=== PATIENT | female | born 1950 | race African-American/Black ===

== ENCOUNTER 2017-06-30 10:33 | Emergency (ER) | payer MEDICARE ==
[~2017-06-30] VITALS: Ht 170.2 cm; Wt 77.0 kg
[2017-06-30 10:34] VITALS: BP 192/85; PULSE 77; RESP 16; TEMP 97.9; O2SAT 98
[2017-06-30] MEDS ORDERED: ASPI81CH CHEW (11:17)
[2017-06-30] MEDS ORDERED: METO50TA PO (11:17)
[2017-06-30] MEDS ORDERED: GABA100C4 PO (11:17)
[2017-06-30] MEDS ORDERED: LOTR5CAP3 PO (11:17)
[2017-06-30] MEDS ORDERED: FAMO1TAB37 PO (11:21)
--- NOTE | 2017-06-30 11:22 | PD ---
HPI Chief Complaint: Dizziness Time Seen by Provider: 11:09 Travel History International Travel<30 days: No Contact w/Intl Traveler<30days: No Traveled to known affect area: No History of Present Illness HPI The patient was seen and examined in the presence of the nurse. This patient complains of feeling lightheadedness. Duration is 2 hours. Severity is moderate. No syncope. She denies headache or chest pain. No vertigo sensation. Her blood pressure is 200 systolic. She did take her medication a few hours ago for blood pressure. No alleviating factors. She has no confusion or speech slurring or other neurologic phenomenon. PFSH Past Medical History Cerebrovascular Accident: Yes Social History Alcohol Use: No Tobacco Use: No Substance Use: No Allergies-Medications (Allergen,Severity, Reaction): Coded Allergies: No Known Allergies (Verified Allergy, Unknown, 06/30/17) Reported Meds & Prescriptions Reported Meds & Active Scripts Active Reported Pepcid (Famotidine) 20 Mg Tab 10 Mg PO BID Aspirin 81 Mg Chew 81 Mg CHEW DAILY Metoprolol Tartrate 50 Mg Tab 50 Mg PO DAILY Lotrel (Amlodipine-Benazepril) 5-20 Mg Cap 1 Cap PO DAILY Gabapentin 100 Mg Cap 100 Mg PO TID Review of Systems General / Constitutional: No: Fever Eyes: No: Visual changes HENT: Positive: Lightheadedness, No: Headaches Cardiovascular: No: Chest Pain or Discomfort Respiratory: No: Shortness of Breath Gastrointestinal: No: Abdominal Pain Genitourinary: No: Dysuria Musculoskeletal: No: Pain Skin: No Rash Neurologic: No: Weakness Psychiatric: No: Depression Endocrine: No: Polydipsia Hematologic/Lymphatic: No: Easy Bruising Physical Exam Narrative GENERAL: Well-nourished, well-developed patient in no apparent distress. SKIN: Focused skin assessment reveals no rash and nodules. Skin is Warm and dry. HEAD: Atraumatic. Normocephalic. 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 Right pupil is irregular from surgery. No scleral icterus. No injection or drainage. ENT: No nasal bleeding or discharge. Mucous membranes pink and moist. NECK: Trachea midline. No JVD. No meningeal signs CARDIOVASCULAR: Regular rate and rhythm. No murmur appreciated. RESPIRATORY: No accessory muscle use. Clear to auscultation. Breath sounds equal bilaterally. GASTROINTESTINAL: Abdomen soft, non-tender, nondistended. Hepatic and splenic margins not palpable. MUSCULOSKELETAL: No obvious deformities. No clubbing. No cyanosis. No edema. NEUROLOGICAL: Awake and alert. No obvious cranial nerve deficits. Motor grossly within normal limits. Normal speech. PSYCHIATRIC: Appropriate mood and affect; insight and judgment normal. Data Data Last Documented VS Vital Signs Date Time Temp Pulse Resp B/P (MAP) Pulse Ox O2 Delivery O2 Flow Rate FiO2 06/30/17 12:15 62 15 166/90 (115) 98 Room Air 06/30/17 10:34 97.9 Orders Orders Electrocardiogram (06/30/17 10:53) Complete Blood Count With Diff (06/30/17 10:53) Basic Metabolic Panel (Bmp) (06/30/17 10:53) Electrocardiogram (06/30/17 ) Clonidine (Catapres) (06/30/17 11:30) Labs Laboratory Tests Test 06/30/17 11:30 White Blood Count 5.2 TH/MM3 Red Blood Count 5.58 MIL/MM3 Hemoglobin 13.5 GM/DL Hematocrit 42.9 % Mean Corpuscular Volume 76.9 FL Mean Corpuscular Hemoglobin 24.2 PG Mean Corpuscular Hemoglobin Concent 31.5 % Red Cell Distribution Width 18.9 % Platelet Count 215 TH/MM3 Mean Platelet Volume 7.9 FL Neutrophils (%) (Auto) 67.1 % Lymphocytes (%) (Auto) 26.4 % Monocytes (%) (Auto) 5.4 % Eosinophils (%) (Auto) 0.6 % Basophils (%) (Auto) 0.5 % Neutrophils # (Auto) 3.5 TH/MM3 Lymphocytes # (Auto) 1.4 TH/MM3 Monocytes # (Auto) 0.3 TH/MM3 Eosinophils # (Auto) 0.0 TH/MM3 Basophils # (Auto) 0.0 TH/MM3 CBC Comment DIFF FINAL Differential Comment Blood Urea Nitrogen 15 MG/DL Creatinine 0.78 MG/DL Random Glucose 103 MG/DL Calcium Level 9.7 MG/DL Sodium Level 138 MEQ/L Potassium Level 3.9 MEQ/L Chloride Level 104 MEQ/L Carbon Dioxide Level 27.4 MEQ/L Anion Gap 7 MEQ/L Estimat Glomerular Filtration Rate 89 ML/MIN MDM Medical Decision Making Medical Screen Exam Complete: Yes Emergency Medical Condition: Yes Medical Record Reviewed: Yes Differential Diagnosis Hypertensive urgency, CVA, accelerated hypertension Narrative Course I have reviewed the patient's electronic medical record. Patient is neurologically intact IV placed I reviewed her EKG which shows sinus rhythm but no ST elevation or ectopy Extended cardiac monitoring reveals sinus rhythm without ectopy CBC is normal Metabolic profile is normal I gave her dose of clonidine for blood pressure 200 systolic On recheck her blood pressures 160 systolic She is advised to check and recorded daily The patient was advised to follow up with their physician and return if they worsen. She feels improved on reevaluation and no longer lightheaded Diagnosis Primary Impression: Lightheadedness Additional Impression: Accelerated hypertension Additional Instructions: The patient was advised to follow up with their physician and return if they worsen. Check and record blood pressure daily Med/Other Pt SpecificInfo: Other Disposition: 01 DISCHARGE HOME Condition: Stable Prince Owens MD Jun 30, 2017 11:22
[2017-06-30] MEDS ORDERED: cloNIDine HCL 0.2 MG TAB PO ONE (11:30)
[2017-06-30 11:38] VITALS: BP 199/91; PULSE 65
[2017-06-30 11:52] LABS: AUTOMATED NEUTROPHIL # 3.5 TH/MM3 (1.8-7.7); BASOPHIL % 0.5 % (0.0-2.0); EOSINOPHIL % 0.6 % (0.0-4.0); HEMATOCRIT 42.9 % (35.0-46.0); HEMO FLAGS DIFF FINAL; LYMPH % 26.4 % (9.0-44.0); LYMPHOCYTE # 1.4 TH/MM3 (1.0-4.8); MEAN CELL VOLUME 76.9 FL (80.0-100.0); MEAN CORPUSCULAR HEMOGLOBIN 24.2 PG (27.0-34.0); MEAN CORPUSCULAR HGB CONC 31.5 % (32.0-36.0); MONO % 5.4 % (0.0-8.0); NEUT % 67.1 % (16.0-70.0); PLATELET COUNT 215 TH/MM3 (150-450); RED BLOOD COUNT 5.58 MIL/MM3 (4.00-5.30); RED CELL DISTRIBUTION WIDTH 18.9 % (11.6-17.2); WHITE BLOOD COUNT 5.2 TH/MM3 (4.0-11.0)
[2017-06-30 11:55] VITALS: BP 138/66; PULSE 62; RESP 16; O2SAT 99
[2017-06-30 12:05] LABS: BICARBONATE 27.4 MEQ/L (21.0-32.0); POTASSIUM 3.9 MEQ/L (3.5-5.1)
[2017-06-30 12:15] VITALS: BP 166/90; PULSE 62; RESP 15; O2SAT 98
[2017-06-30 13:02] VITALS: BP 166/90
--- NOTE | 2017-07-01 20:09 | EKG ---
Date Performed: 06/30/2017 Time Performed: 11:16:52 PTAGE: 66 years EKG: Sinus rhythm POSSIBLE LEFT ATRIAL ENLARGEMENT NONSPECIFIC T-WAVE ABNORMALITY BORDERLINE ECG NO PREVIOUS TRACING DOCTOR: Grabiel Pereira Interpretating Date/Time 07/01/2017 20:07:07
== END 2017-06-30 13:27 | disposition home or self-care (01) ==
LOC: NEPD 10:33
DX: I10 Essential (primary) hypertension (principal); R42 Dizziness and giddiness; Z86.73 Personal history of transient ischemic attack (TIA), and cerebral infarction without residual deficits
CPT/HCPCS: 80048; 85025; 93005; 99284